=== PATIENT | male | born 1980 | race Two or more races ===

== ENCOUNTER → 2016-11-01 | Emergency (ER) | payer OTHER ==
[~2016-11-01] MED LIST: DICYCLOMINE HCL 10 MG CAPSULE ONE; DICYCLOMINE HCL 10 MG CAPSULE PO ONE; LIDOCAINE VISCOUS 2% ORAL/TOP 20 ML UNIT-DOSE CUP MM ONE; MAG HYDROX/AL HYDROX/SIMETH 30 ML UNIT-DOSE CUP ONE; MAG HYDROX/AL HYDROX/SIMETH 30 ML UNIT-DOSE CUP PO ONE
[2016-11-01 05:27] VITALS: BMI 40.6
--- NOTE | 2016-11-01 05:36 | PDOC ---
History of Present Illness - General History Source: Patient Exam Limitations: No Limitations - History of Present Illness Initial Comments: 11/01/16 05:36 The patient is a 36 year old male with no significant past medical history who presents to the ED with chest pain prior to arrival. Patient reports he developed non-radiating left-sided chest pain prior to arrival. He describes his pain as a burning sensation. He denies diaphoresis, lightheadedness, SOB, shoulder pain, arm pain, jaw pain, nausea, or vomiting. The patient denies fever, chills, cough, abdominal pain, and diarrhea. Allergies: NKDA Social History: Marijuana, cocaine, and etoh use Past Surgical History: None reported PCP: None reported <Emily Tapia - Last Filed: 11/01/16 05:36> <Enmanuel Joyce - Last Filed: 11/01/16 22:20> - General Chief Complaint: Chest Pain Stated Complaint: CHEST DISCOMFORT Past History <Emily Tapia - Last Filed: 11/01/16 05:36> - Past Medical History Anemia: No Asthma: No Cancer: No Cardiac Disorders: No CVA: No COPD: No CHF: No Dementia: No Diabetes: No GI Disorders: Yes (acid reflux) Disorders: No HTN: Yes (BORDERLINE) Hypercholesterolemia: Yes (BORDERLINE) Kidney Stones: No Liver Disease: No Suicide Attempt (Hx): No Seizures: No Thyroid Disease: No - Surgical History Abdominal Surgery: No Appendectomy: No Cardiac Surgery: No Cholecystectomy: No Lung Surgery: No Neurologic Surgery: No Orthopedic Surgery: No - Reproductive History Testicular Surgery: No - Immunization History Immunization Up to Date: No - Psycho/Social/Smoking Cessation Hx Anxiety: No Suicidal Ideation: No Smoking History: Current every day smoker Have you smoked in the past 12 months: Yes Number of Cigarettes Smoked Daily: 10 Information on smoking cessation initiated: Yes 'Breaking Loose' booklet given: 08/21/15 Hx Alcohol Use: Yes Drug/Substance Use Hx: Yes Substance Use Type: Alcohol, Cocaine, Marijuana Hx Substance Use Treatment: No <Enmanuel Joyce - Last Filed: 11/01/16 22:20> - Past Medical History Allergies/Adverse Reactions: Allergies Allergy/AdvReac Type Severity Reaction Status Date / Time No Known Allergies Allergy Verified 11/01/16 05:21 Home Medications: Ambulatory Orders NK [No Known Home Medication] 08/21/15 Review of Systems - Review of Systems Able to Perform ROS?: Yes Comments:: 11/01/16 05:36 CONSTITUTIONAL: Absent: fever, no chills, no fatigue EYES: Absent: visual changes ENT: Absent: ear pain, no sore throat CARDIOVASCULAR: +chest pain Absent: no palpitations RESPIRATORY: Absent: cough, no SOB GI: Absent: abdominal pain, no nausea, no vomiting, no constipation, no diarrhea GENITOURINARY: Absent: dysuria, no frequency, no hematuria MUSKULOSKELETAL: Absent: back pain, no arthralgia, no myalgia SKIN: Absent: rash NEURO: Absent: headache <Emily Tapia - Last Filed: 11/01/16 05:36> *Physical Exam - Vital Signs Last Vital Signs Temp Pulse Resp BP Pulse Ox 97.7 F 98 H 18 143/96 100 11/01/16 05:15 11/01/16 05:15 11/01/16 05:15 11/01/16 05:15 11/01/16 05:15 - Physical Exam Comments: 11/01/16 05:36 GENERAL: Well-appearing, well-nourished. No apparent distress. HEENT: Normocephalic, atraumatic. PERRL, EOM intact. CARDIOVASCULAR: Normal S1, S2. Regular rate and rhythm. PULMONARY: Clear to auscultation bilaterally. ABDOMEN: Soft, non-distended, non-tender. EXTREMITIES: Normal ROM in all four extremities. No gross deformities. SKIN: Warm, dry. No rash NEUROLOGICAL: No focal neurological deficits. <Emily Tapia - Last Filed: 11/01/16 05:36> - Vital Signs Last Vital Signs Temp Pulse Resp BP Pulse Ox 97.7 F 98 H 18 143/96 100 11/01/16 05:15 11/01/16 05:15 11/01/16 05:15 11/01/16 05:15 11/01/16 05:15 <Enmanuel Joyce - Last Filed: 11/01/16 22:20> ED Treatment Course - LABORATORY CBC & Chemistry Diagram: 11/01/16 05:20 11/01/16 05:20 - RADIOLOGY Radiology Studies Ordered: Category Date Time Status CHEST X-RAY PORTABLE* [RAD] Stat Radiology 02/28/17 05:17 Ordered <Enmanuel Joyce - Last Filed: 11/01/16 22:20> *DC/Admit/Observation/Transfer - Attestations Scribe Attestion: 11/01/16 05:36 Documentation prepared by Emily Tapia, acting as medical lab specialist for Enmanuel Joyce MD, <Emily Tapia - Last Filed: 11/01/16 05:36> - Discharge Dispostion Admit: No <Enmanuel Joyce - Last Filed: 11/01/16 22:20> Diagnosis at time of Disposition: Chest pain - Discharge Dispostion Disposition: HOME Condition at time of disposition: Stable - Referrals Referrals: STAFF,NOT ON [Primary Care Provider] - - Patient Instructions Printed Discharge Instructions: DI for Atypical Chest Pain Additional Instructions: You have been worked up for chest pain that is not typical for cardiac origin; however we strongly advise that you refrain from using illegal drugs and substances. Please follow-up with your primary care physician within 3-5 days and return to the emergency department if your symptoms persist, worsen, or new symptoms arise.
[2016-11-01 05:45] LABS: MCH 26.8 pg (25.7-33.7); MCHC 32.6 g/dl (32.0-35.9); MEAN CELL VOLUME 82.1 fl (80-96); MEAN PLT VOLUME 7.9 fl (7.5-11.1); PLATELET COUNT 250 K/MM3 (134-434); WHITE BLOOD COUNT 14.4 K/mm3 (4.0-10.0)
[2016-11-01 06:18] LABS: ALBUMIN 3.7 g/dl (3.4-5.0); ANION GAP 9 (8-16); BILIRUBIN,TOTAL 0.2 mg/dL (0.2-1.0); CO2 28 mmol/L (21-32); CREATININE 1.2 mg/dL (0.7-1.3); GLUCOSE,RANDOM 110 mg/dL (74-106); SGOT/AST 13 U/L (15-37); SGPT/ALT 33 U/L (12-78); TOT PROT 6.9 g/dl (6.4-8.2)
[2016-11-01 06:21] LABS: ALK PHOS 114 U/L (45-117); TROPONIN I < 0.02 ng/ml (0.00-0.05)
[2016-11-01 06:26] LABS: URINE APPEARANCE CLEAR; URINE BILIRUBIN NEGATIVE (NEGATIVE); URINE BLOOD NEGATIVE (NEGATIVE); URINE COLOR LTYELLOW; URINE GLUCOSE (UA) NEGATIVE (NEGATIVE); URINE KETONE NEGATIVE (NEGATIVE); URINE NITRITE NEGATIVE (NEGATIVE); URINE PROTEIN NEGATIVE (NEGATIVE); URINE UROBILINOGEN NEGATIVE E.U./dl (0.2-1.0)
[2016-11-01 06:43] LABS: URINE LEUK ESTERASE TRACE (NEGATIVE)
[2016-11-01 06:46] LABS: URINE MARIJUANA THC POSITIVE ng/ml (CUTOFF=50)
[2016-11-01 06:52] LABS: URINE BACTERIA RARE /hpf (NONE SEEN); URINE HYALINE CAST 1 /lpf; URINE MUCUS RARE; URINE RBC <1 /hpf (0-3); URINE WBC 5 /hpf (3-5)
[2016-11-01 07:12] LABS: PLATELET ESTIMATE ADEQUATE (NORMAL)
[2016-11-01 11:06] VITALS: BP 133/88; PULSE 85; TEMP 97.8
[2016-11-01 12:12] LABS: TROPONIN I < 0.02 ng/ml (0.00-0.05)
--- NOTE | 2016-11-01 12:31 | PDOC ---
*Physical Exam - Vital Signs Last Vital Signs Temp Pulse Resp BP Pulse Ox 97.8 F 85 16 133/88 99 11/01/16 11:05 11/01/16 11:05 11/01/16 11:05 11/01/16 11:05 11/01/16 11:05 ED Treatment Course - LABORATORY CBC & Chemistry Diagram: 11/01/16 05:20 11/01/16 05:20 - ADDITIONAL ORDERS Additional order review: Laboratory Results 11/01/16 11/01/16 11/01/16 11:05 06:00 06:00 Sodium Potassium Chloride Carbon Dioxide Anion Gap BUN Creatinine Creat Clearance w eGFR Random Glucose Calcium Total Bilirubin AST ALT Alkaline Phosphatase Creatine Kinase 159 Creatine Kinase Index CK-MB (CK-2) CK-MB (CK-2) Rel Index Troponin I < 0.02 Total Protein Albumin Urine Color Ltyellow Urine Appearance Clear Urine pH 5.0 Ur Specific Jasper 1.023 Urine Protein Negative Urine Glucose (UA) Negative Urine Ketones Negative Urine Blood Negative Urine Nitrite Negative Urine Bilirubin Negative Urine Urobilinogen Negative Ur Leukocyte Esterase Trace H Urine RBC <1 Urine WBC 5 Ur Epithelial Cells Rare Urine Bacteria Rare Hyaline Casts 1 Urine Mucus Rare Opiates Screen Negative Methadone Screen Negative Barbiturate Screen Negative Phencyclidine Screen Positive Ur Amphetamines Screen Negative MDMA (Ecstasy) Screen Negative Benzodiazepines Screen Negative Cocaine Screen Positive U Marijuana (THC) Screen Positive Alcohol, Quantitative 11/01/16 11/01/16 05:20 05:20 Sodium 143 Potassium 4.0 Chloride 106 Carbon Dioxide 28 Anion Gap 9 BUN 19 H D Creatinine 1.2 Creat Clearance w eGFR > 60 Random Glucose 110 H Calcium 9.0 Total Bilirubin 0.2 D AST 13 L D ALT 33 Alkaline Phosphatase 114 D Creatine Kinase 187 Creatine Kinase Index 0.6 CK-MB (CK-2) 1.169 CK-MB (CK-2) Rel Index Cancelled Troponin I < 0.02 Total Protein 6.9 Albumin 3.7 Urine Color Urine Appearance Urine pH Ur Specific Jasper Urine Protein Urine Glucose (UA) Urine Ketones Urine Blood Urine Nitrite Urine Bilirubin Urine Urobilinogen Ur Leukocyte Esterase Urine RBC Urine WBC Ur Epithelial Cells Urine Bacteria Hyaline Casts Urine Mucus Opiates Screen Methadone Screen Barbiturate Screen Phencyclidine Screen Ur Amphetamines Screen MDMA (Ecstasy) Screen Benzodiazepines Screen Cocaine Screen U Marijuana (THC) Screen Alcohol, Quantitative < 5.0 11/01/16 05:20 RBC 5.36 MCV 82.1 MCHC 32.6 RDW 14.0 MPV 7.9 Neutrophils % 58.0 Lymphocytes % 32.0 Monocytes % 3.0 L Eosinophils % 3.0 - Medications Given in the ED: ED Medications Discontinued Medications Generic Name Dose Route Start Last Admin Trade Name Daryl PRN Reason Stop Dose Admin Al Hydroxide/Mg Hydroxide 30 ml 11/01/16 05:26 11/01/16 06:12 Mylanta Oral Suspension - PO 11/01/16 05:27 30 ml ONCE ONE Administration Dicyclomine HCl 10 mg 11/01/16 05:26 11/01/16 06:12 Bentyl - PO 11/01/16 05:27 10 mg ONCE ONE Administration Lidocaine HCl 10 ml 11/01/16 05:26 11/01/16 06:12 Xylocaine 2% Viscous Oral - MM 11/01/16 05:27 10 ml ONCE ONE Administration Progress Note - Progress Note Progress Note: This patient was endorsed to me at [address] Joyce pending second set of cardiac enzymes and reevaluation. I have reevaluated the patient at this time and the patient is chest pain-free and is feeling improved. His second set of cardiac markers are negative. Will discharge patient home and I have advised him that he said follow-up with his primary care physician within 3-5 days. I have also advised the patient that he should return to the emergency department if his symptoms persist, worsen, or new symptoms arise. *DC/Admit/Observation/Transfer Diagnosis at time of Disposition: Chest pain - Discharge Dispostion Disposition: HOME Condition at time of disposition: Stable Admit: No - Referrals Referrals: STAFF,NOT ON [Primary Care Provider] - - Patient Instructions Printed Discharge Instructions: DI for Atypical Chest Pain Additional Instructions: You have been worked up for chest pain that is not typical for cardiac origin; however we strongly advise that you refrain from using illegal drugs and substances. Please follow-up with your primary care physician within 3-5 days and return to the emergency department if your symptoms persist, worsen, or new symptoms arise. - Post Discharge Activity
--- NOTE | 2016-11-01 12:42 | EKG ---
Test Reason : Blood Pressure : / mmHG Vent. Rate : 098 BPM Atrial Rate : 098 BPM P-R Int : 140 ms QRS Dur : 090 ms QT Int : 328 ms P-R-T Axes : 051 -10 027 degrees QTc Int : 418 ms NORMAL SINUS RHYTHM NORMAL ECG NO PREVIOUS ECGS AVAILABLE Confirmed by BOOKER PAREKH MD ([id number]) on 11/01/2016 12:42:14 PM Referred By: Confirmed By:BOOKER PAREKH MD
== END | disposition home or self-care (01) ==
LOC: JER 04:50
DX: R07.89 Other chest pain (principal); I10 Essential (primary) hypertension; E78.00 Pure hypercholesterolemia, unspecified; K21.9 Gastro-esophageal reflux disease without esophagitis; F17.210 Nicotine dependence, cigarettes, uncomplicated
CPT/HCPCS: 36415; 71020-TC; 80053; 80307; 81003; 81015; 82550; 82553; 84484; 85025; 93005; 93010; 99282-25

== ENCOUNTER 2018-04-23 09:07 | Emergency (ER) | payer OTHER ==
[2018-04-23 09:14] VITALS: BP 129/90; PULSE 100; TEMP 98.3; BMI 40.3
[2018-04-23] MEDS ORDERED: AZITHROMYCIN 1 GM PACKET PO ONE (09:37)
--- NOTE | 2018-04-23 09:40 | PDOC ---
History of Present Illness - General Chief Complaint: Penile Drainage Stated Complaint: EVALUATION Time Seen by Provider: 04/23/18 09:25 History Source: Patient Exam Limitations: No Limitations - History of Present Illness Travel History: No Initial Comments: 04/23/18 09:35 Patient here concerned about STD. States had unprotected sex on Monday and feels some mild burning to his penis since that time. is uncertain as the health status of his female friend. Has never had an STD Quality: reports: mild Abdominal Pain Onset Location: reports: generalized abdomen Pain Radiation: reports: no radiation Activities at Onset: reports: none Past History - Past Medical History Allergies/Adverse Reactions: Allergies Allergy/AdvReac Type Severity Reaction Status Date / Time No Known Allergies Allergy Verified 04/23/18 09:11 Home Medications: Ambulatory Orders NK [No Known Home Medication] 08/21/15 Anemia: No Asthma: No Cancer: No Cardiac Disorders: No CVA: No COPD: No CHF: No DVT: No Dementia: No Diabetes: No GI Disorders: Yes (acid reflux) Disorders: No HTN: Yes (BORDERLINE) Hypercholesterolemia: Yes (BORDERLINE) Kidney Stones: No Liver Disease: No Seizures: No Thyroid Disease: No - Surgical History Abdominal Surgery: No Appendectomy: No Cardiac Surgery: No Cholecystectomy: No Lung Surgery: No Neurologic Surgery: No Orthopedic Surgery: No - Reproductive History Testicular Surgery: No - Immunization History Immunization Up to Date: No - Suicide/Smoking/Psychosocial Hx Smoking History: Current every day smoker Have you smoked in the past 12 months: Yes Number of Cigarettes Smoked Daily: 5 Information on smoking cessation initiated: Yes 'Breaking Loose' booklet given: 04/23/18 Hx Alcohol Use: No Drug/Substance Use Hx: No Substance Use Type: Alcohol, Cocaine, Marijuana Hx Substance Use Treatment: No Abd/GI Specific PMHX - Complaint Specific PMHX Hepatitis: No Pancreatitis: No Review of Systems - Review of Systems Able to Perform ROS?: No Is the patient limited Divehi proficient: No Constitutional: Yes: See HPI. No: Symptoms Reported, Loss of Appetite, Malaise HEENTM: No: Symptoms Reported ABD/GI: No: Symptoms Reported : Yes: Symptoms Reported, See HPI, Burning. No: Dysuria, Discharge All Other Systems: Reviewed and Negative *Physical Exam - Vital Signs Last Vital Signs Temp Pulse Resp BP Pulse Ox 98.3 F 100 H 18 129/90 100 04/23/18 09:11 04/23/18 09:11 04/23/18 09:11 04/23/18 09:11 04/23/18 09:11 - Physical Exam General Appearance: Yes: Nourished, Appropriately Dressed. No: Mild Distress HEENT: positive: MECHELLE, Normal ENT Inspection, TMs Normal, Pharynx Normal Neck: positive: Supple. negative: Tender, Lymphadenopathy (R), Lymphadenopathy (L) Male Genitalia: positive: normal genitalia. 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 Patient understands results will return in 3-5 days for treatment for gonorrhea and chlamydia has been completed. HIV testing negative *DC/Admit/Observation/Transfer Diagnosis at time of Disposition: Exposure to STD - Discharge Dispostion Disposition: HOME Condition at time of disposition: Stable Decision to Admit order: No - Referrals Referrals: Cash Smith [Primary Care Provider] - - Patient Instructions Printed Discharge Instructions: Facts About Sexually Transmitted Infections Additional Instructions: You been treated today with azithromycin 1 g by mouth for treatment of presumed chlamydia You have been treated with Rocephin 250 mg injection for treatment of presumned gonorrhea The syphilis test, gonorrhea and chlamydia testing will not be completed for the next few days. Your HIV testing was negative today You may call [phone] and leave message for return phone call with lab results. Be sure to be clear with your name, birthdate, and phone number Always use condoms with the partners Followup with PMD in one week for reevaluation and retesting. - Post Discharge Activity Forms/Work/School Notes: Back to Work
[2018-04-23 09:54] LABS: URINE APPEARANCE CLEAR; URINE BILIRUBIN NEGATIVE (<2.0 mg/dL); URINE COLOR YELLOW; URINE GLUCOSE (UA) NEGATIVE (NEGATIVE); URINE KETONE TRACE (NEGATIVE); URINE LEUK ESTERASE NEGATIVE (NEGATIVE); URINE NITRITE NEGATIVE (NEGATIVE); URINE PROTEIN NEGATIVE (NEGATIVE)
[2018-04-23] MEDS ORDERED: AZITHROMYCIN 250 MG TABLET ONE (09:55)
== END 2018-04-23 11:39 | disposition home or self-care (01) ==
LOC: JERFT 09:07
DX: Z20.2 Contact with and (suspected) exposure to infections with a predominantly sexual mode of transmission (principal)
CPT/HCPCS: 36415; 81003; 86593; 87389; 87491; 87591; 96372; 99281-25

== ENCOUNTER 2019-07-11 08:33 | Emergency (ER) | payer SELFPAY ==
[2019-07-11 08:38] VITALS: BP 167/90; PULSE 98; TEMP 98.6; BMI 37.6
[2019-07-11] MEDS ORDERED: AZITHROMYCIN 500 MG TABLET PO ONE (09:47)
--- NOTE | 2019-07-11 09:52 | PDOC ---
History of Present Illness - General Chief Complaint: HIV Testing Stated Complaint: DIZZNESS Time Seen by Provider: 07/11/19 08:49 - History of Present Illness Initial Comments: 07/11/19 09:48 CHIEF COMPLAINT: std testing HISTORY OF PRESENT ILLNESS: 39 yo M presents to [facility] for [facility]D [facility]. Patient reports that he was in [place] with his ex this weekend and "had a little too much fun" and was involved with an additional sexual partner. He states he wants to get checked for STDs although "it's not that big of a deal, we have a kid together and I know her friend that we were with too, I just want to make sure I'm ok." Patient denies any symptoms including urinary discomfort or penile discharge. No recent travel or sick contacts. PAST MEDICAL HISTORY: Denies past medical history FAMILY HISTORY: Denies SOCIAL HISTORY: Denies tobacco, alcohol, illicit drug use. SURGICAL HISTORY: Denies ALLERGIES: No known drug allergies REVIEW OF SYSTEMS General/Constitutional: Denies fever or chills. Denies weakness, weight change. HEENT: Denies change in vision. Denies ear pain or discharge. Denies sore throat. Cardiovascular: Denies chest pain or shortness of breath. Respiratory: Denies cough, wheezing, or hemoptysis. Gastrointestinal: Denies nausea, vomiting, diarrhea or constipation. Denies rectal bleeding. Genitourinary: Denies dysuria, frequency, or change in urination. Musculoskeletal: Denies joint or muscle swelling or pain. Denies neck or back pain. Skin and breasts: Denies rash or easy bruising. Neurologic: Denies headache, vertigo, loss of consciousness, or loss of sensation. Psychiatric: Denies depression or anxiety. PHYSICAL EXAM General Appearance: Well-appearing, appropriately dressed. No apparent distress , no intoxication. HEENT: EOMI, PERRLA, normal ENT inspection, normal voice, TMs normal, pharynx normal. No conjunctival pallor. No photophobia, scleral icterus. Neck: Supple. Trachea midline. No tenderness, rigidity, carotid bruit, stridor , lymphadenopathy, or thyromegaly. Respiratory/Chest: Lungs CTAB. No shortness of breath, chest tenderness, respiratory distress, accessory muscle use. No crackles, rales, rhonchi, stridor , wheezing, dullness Cardiovascular: RRR. S1, S2. No JVD, murmur, bradycardia, tachycardia. Vascular Pulses: Dorsalis-Pedis (R): 2+, Dorsalis-Pedis (L): 2+ Gastrointestinal/Abdominal: Normal bowel sounds. Abdomen soft, non-distended. No tenderness or rebound tenderness. No organomegaly, pulsatile mass, guarding , hernia, hepatomegaly, splenomegaly. Lymphatic: No adenopathy, tenderness. Musculoskeletal/Extremities: Normal inspection. FROM of all extremities, normal capillary refill. Pelvis Stable. No CVA tenderness. No tenderness to extremities, pedal edema, swelling, erythema or deformity. Integumentary: Appropriate color, dry, warm. 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 Fully oriented, alert. Appropriate mood/affect. Motor strength 5/5. No appreciable EOM palsy, facial droop or sensory deficit. Past History - Past Medical History Allergies/Adverse Reactions: Allergies Allergy/AdvReac Type Severity Reaction Status Date / Time No Known Allergies Allergy Verified 07/11/19 08:39 Home Medications: Ambulatory Orders NK [No Known Home Medication] 08/21/15 Anemia: No Asthma: No Cancer: No Cardiac Disorders: No CVA: No COPD: No CHF: No DVT: No Dementia: No Diabetes: No GI Disorders: Yes (acid reflux) Disorders: No HTN: Yes (BORDERLINE) Hypercholesterolemia: Yes (BORDERLINE) Kidney Stones: No Liver Disease: No Seizures: No Thyroid Disease: No - Surgical History Abdominal Surgery: No Appendectomy: No Cardiac Surgery: No Cholecystectomy: No Lung Surgery: No Neurologic Surgery: No Orthopedic Surgery: No - Reproductive History Testicular Surgery: No - Immunization History Immunization Up to Date: No - Psycho Social/Smoking Cessation Hx Smoking History: Current every day smoker Have you smoked in the past 12 months: Yes Number of Cigarettes Smoked Daily: 5 Information on smoking cessation initiated: No 'Breaking Loose' booklet given: 04/23/18 Hx Alcohol Use: No Drug/Substance Use Hx: No Substance Use Type: Alcohol, Cocaine, Marijuana Hx Substance Use Treatment: No *Physical Exam - Vital Signs Last Vital Signs Temp Pulse Resp BP Pulse Ox 98.6 F 98 H 14 167/90 98 07/11/19 08:36 07/11/19 08:36 07/11/19 08:36 07/11/19 08:36 07/11/19 08:36 Medical Decision Making - Medical Decision Making 07/11/19 09:52 39 yo M presents to fast track for STD testing. Patient states he does not want to wait for HIV testing and will do that with PCP's office. He does request other testing and treatment for chlamydia/ gonorrhea. -RPR, hep C -chlamydia, gonorrhea, trich -azithromycin, ceftriaxone Discharge - Discharge Information Problems reviewed: Yes Clinical Impression/Diagnosis: Concern about STD in male without diagnosis Condition: Stable Disposition: HOME - Admission No - Follow up/Referral Referrals: Cash Smith [Primary Care Provider] - Griffin Collins MD [Staff Physician] - - Patient Discharge Instructions Patient Printed Discharge Instructions: Facts About Sexually Transmitted Infections - Post Discharge Activity
[2019-07-11] MEDS ORDERED: AZITHROMYCIN 250 MG TABLET ONE (10:12)
== END 2019-07-11 10:30 | disposition home or self-care (01) ==
LOC: JERFT 08:33
DX: Z71.1 Person with feared health complaint in whom no diagnosis is made (principal)
CPT/HCPCS: 36415; 86593; 87491; 87522; 87591; 87661; 99281-25

== ENCOUNTER 2020-11-30 15:39 | Emergency (ER) | payer OTHER ==
[2020-11-30 15:55] VITALS: TEMP 97.7; BMI 36.9
[2020-11-30 16:47] VITALS: BP 170/100; PULSE 96
[2020-11-30 16:55] LABS: URINE APPEARANCE CLEAR; URINE BILIRUBIN NEGATIVE (NEGATIVE); URINE COLOR YELLOW; URINE GLUCOSE (UA) TRACE (NEGATIVE); URINE KETONE NEGATIVE (NEGATIVE); URINE LEUK ESTERASE NEGATIVE (NEGATIVE); URINE NITRITE NEGATIVE (NEGATIVE); URINE PROTEIN NEGATIVE (NEGATIVE); URINE UROBILINOGEN 0.2 mg/dL (0.2-1.0)
== END 2020-11-30 16:59 | disposition home or self-care (01) ==
LOC: JERFT 15:39
DX: R03.0 Elevated blood-pressure reading, without diagnosis of hypertension (principal); Z11.3 Encounter for screening for infections with a predominantly sexual mode of transmission
CPT/HCPCS: 36415; 81003; 87086; 87491; 87591; 99283-25

== ENCOUNTER 2021-01-02 17:18 | Emergency (ER) | payer OTHER ==
[2021-01-02 17:32] VITALS: BP 143/86; PULSE 111; TEMP 97.7; BMI 40.6
== END 2021-01-02 18:03 | disposition left against medical advice (07) ==
LOC: JER 17:18
DX: R42 Dizziness and giddiness (principal)
CPT/HCPCS: 99281-25

== ENCOUNTER 2023-03-19 19:54 | Emergency (ER) | payer OTHER ==
[2023-03-19 20:15] VITALS: BP 148/91; PULSE 111; RESP 20; TEMP 99; BMI 39.5
== END 2023-03-19 21:42 | disposition home or self-care (01) ==
LOC: FER 19:54
DX: Z20.2 Contact with and (suspected) exposure to infections with a predominantly sexual mode of transmission (principal)
CPT/HCPCS: 36415; 81003; 86780; 87491; 87591; 99283-25

== ENCOUNTER 2023-05-18 23:08 | Emergency (ER) | payer OTHER ==
[2023-05-18 23:12] VITALS: BMI 38.7
[2023-05-19 00:36] LABS: BASO % 0.8 % (0-2.0); HEMATOCRIT 47.3 % (35.4-49); HEMOGLOBIN 15.5 GM/dL (11.7-16.9); LYMPH % 20.2 % (8-40); MCH 26.6 pg (25.7-33.7); MCHC 32.8 g/dl (32.0-35.9); MEAN CELL VOLUME 81.1 fl (80-96); MEAN PLT VOLUME 7.7 fl (7.5-11.1); MONO % 7.8 % (3.8-10.2); NEUT % 70.2 % (42.8-82.8); PLATELET COUNT 267 10^3/uL (134-434); RBC 5.83 M/mm3 (4.00-5.60); RDW 13.9 % (11.9-15.9); WHITE BLOOD COUNT 10.6 K/mm3 (4.0-10.0)
[2023-05-19 00:51] LABS: URINE APPEARANCE CLEAR; URINE BILIRUBIN NEGATIVE (NEGATIVE); URINE COLOR YELLOW; URINE GLUCOSE (UA) 3+ (NEGATIVE); URINE KETONE 1+ (NEGATIVE); URINE LEUK ESTERASE NEGATIVE (NEGATIVE); URINE NITRITE NEGATIVE (NEGATIVE); URINE PROTEIN NEGATIVE (NEGATIVE); URINE UROBILINOGEN 0.2 mg/dL (0.2-1.0)
[2023-05-19 00:57] LABS: POTASSIUM 4.2 mmol/L (3.5-5.1)
[2023-05-19 01:00] LABS: ALBUMIN 3.9 g/dl (3.4-5.0); BLOOD UREA NITROGEN 13.1 mg/dL (7-18)
[2023-05-19 01:03] LABS: CREATININE 1.1 mg/dL (0.55-1.3)
[2023-05-19 01:05] LABS: BILIRUBIN,TOTAL 0.4 mg/dL (0.2-1); TOT PROT 7.2 g/dl (6.4-8.2)
[2023-05-19] MEDS ORDERED: LACTATED RINGERS SOLUTION 1000 ML INFUS.BAG IV ONE (01:36)
[2023-05-19] MEDS ORDERED: ACETAMINOPHEN 1000 MG/100 ML BAG IVPB ONE (01:36)
[2023-05-19] MEDS ORDERED: ACETAMINOPHEN INJECTION 100 ML IVPB ONE (01:41)
[2023-05-19 01:55] LABS: HIV INTERPRETATION NEGATIVE (NEGATIVE)
[2023-05-19] MEDS ORDERED: CLINDAMYCIN HCL 150 MG CAPSULE (FP) PO ONE (02:02)
[2023-05-19] MEDS ORDERED: CLINDAMYCIN HCL 150 MG CAPSULE (FP) ONE (03:05)
[2023-05-19 03:16] VITALS: BP 126/74; PULSE 91; RESP 16; TEMP 98.5
== END 2023-05-19 03:17 | disposition home or self-care (01) ==
LOC: JER 23:08
PROC: 3E033NZ Introduction of Analgesics, Hypnotics, Sedatives into Peripheral Vein, Percutaneous Approach (ICD-10-PCS; principal; 2023-05-19)
DX: N49.2 Inflammatory disorders of scrotum (principal)
CPT/HCPCS: 36415; 76870-TC; 80053; 81003; 85025; 86780; 87077; 87086; 87389; 99284-25

== ENCOUNTER 2023-07-21 09:22 | Emergency (ER) | payer OTHER ==
[2023-07-21 09:32] VITALS: RESP 18; TEMP 98; BMI 40.3
[2023-07-21] MEDS ORDERED: KETOROLAC TROMETHAMINE 30 MG/1 ML VIAL IVPUSH ONE (10:33)
[2023-07-21] MEDS ORDERED: KETOROLAC TROMETHAMINE 30 MG/1 ML VIAL ONE (10:40)
[2023-07-21 11:00] LABS: BASO % 0.9 % (0-2.0); EOS % 1.1 % (0-4.5); HEMATOCRIT 42.8 % (35.4-49); HEMOGLOBIN 14.2 GM/dL (11.7-16.9); LYMPH % 21.5 % (8-40); MCH 26.6 pg (25.7-33.7); MCHC 33.2 g/dl (32.0-35.9); MEAN CELL VOLUME 80.4 fl (80-96); MEAN PLT VOLUME 7.5 fl (7.5-11.1); MONO % 6.6 % (3.8-10.2); NEUT % 69.9 % (42.8-82.8); PLATELET COUNT 293 10^3/uL (134-434); RBC 5.32 M/mm3 (4.00-5.60); RDW 14.6 % (11.9-15.9); WHITE BLOOD COUNT 12.1 K/mm3 (4.0-10.0)
[2023-07-21 11:16] LABS: POTASSIUM 3.7 mmol/L (3.5-5.1)
[2023-07-21 11:18] LABS: CALCIUM 9.3 mg/dL (8.5-10.1)
[2023-07-21 11:19] LABS: ALBUMIN 3.5 g/dl (3.4-5.0); BLOOD UREA NITROGEN 13.8 mg/dL (7-18)
[2023-07-21 11:22] LABS: CREATININE 1.3 mg/dL (0.55-1.3)
[2023-07-21 11:23] LABS: TOT PROT 6.6 g/dl (6.4-8.2)
[2023-07-21 11:24] LABS: BILIRUBIN,TOTAL 0.4 mg/dL (0.2-1)
[2023-07-21] MEDS: SODIUM CHLORIDE 0.9% 500 ML INFUS.BAG IV SCH ×2 (12:23→14:15)
[2023-07-21 14:49] LABS: PH,URINE 5.5 (5.0-8.0); URINE APPEARANCE CLEAR; URINE BILIRUBIN NEGATIVE (NEGATIVE); URINE COLOR YELLOW; URINE GLUCOSE (UA) 3+ (NEGATIVE); URINE KETONE TRACE (NEGATIVE); URINE LEUK ESTERASE NEGATIVE (NEGATIVE); URINE NITRITE NEGATIVE (NEGATIVE); URINE PROTEIN NEGATIVE (NEGATIVE); URINE UROBILINOGEN 0.2 mg/dL (0.2-1.0)
[2023-07-21 15:06] VITALS: BP 132/82; PULSE 79
[2023-07-21] MEDS ORDERED: METHOCARBAMOL 500 MG TABLET PO ONE (15:16)
[2023-07-21] MEDS ORDERED: ACETAMINOPHEN 500 MG TABLET (FP) PO ONE (15:16)
[2023-07-21] MEDS ORDERED: METHOCARBAMOL 500 MG TABLET ONE (15:19)
== END 2023-07-21 15:48 | disposition home or self-care (01) ==
LOC: JERFT 09:22
PROC: 3E0333Z Introduction of Anti-inflammatory into Peripheral Vein, Percutaneous Approach (ICD-10-PCS; principal; 2023-07-21)
PROC: 3E0337Z Introduction of Electrolytic and Water Balance Substance into Peripheral Vein, Percutaneous Approach (ICD-10-PCS; 2023-07-21)
DX: R10.9 Unspecified abdominal pain (principal); M54.9 Dorsalgia, unspecified
CPT/HCPCS: 36415; 74176-TC; 80053; 81003; 82962; 85025; 87077; 87086; 87186; 99284-25

== ENCOUNTER 2023-08-20 05:35 | Emergency (ER) | payer OTHER ==
[2023-08-20 05:56] VITALS: BP 121/80; PULSE 110; RESP 18; TEMP 98.5; BMI 38.0
[2023-08-20] MEDS ORDERED: DIPHTH,PERTUSS(ACELL),TET 0.5 ML DISP.SYRIN IM ONE ×2 (08:50→08:55)
== END 2023-08-20 12:14 | disposition home or self-care (01) ==
LOC: JER 05:35
PROC: 3E0234Z Introduction of Serum, Toxoid and Vaccine into Muscle, Percutaneous Approach (ICD-10-PCS; principal; 2023-08-20)
DX: S01.511A Laceration without foreign body of lip, initial encounter (principal); S01.21XA Laceration without foreign body of nose, initial encounter; K03.81 Cracked tooth; Y04.0XXA Assault by unarmed brawl or fight, initial encounter; Y92.522 Railway station as the place of occurrence of the external cause
CPT/HCPCS: 70450-TC; 70486-TC; 72125-TC; 90471; 90715; 99284-25

== ENCOUNTER 2024-03-10 23:32 | Emergency (ER) | payer OTHER ==
[2024-03-10 23:43] VITALS: BP 157/91; PULSE 113; RESP 18; TEMP 98.2; BMI 37.2
[2024-03-11] MEDS ORDERED: ACETAMINOPHEN 500 MG TABLET (FP) ONE (00:47)
[2024-03-11] MEDS ORDERED: IBUPROFEN 400 MG TABLET (FP) PO ONE (00:47)
[2024-03-11] MEDS: IBUPROFEN 400 MG TABLET (FP) PO ONE (00:58)
[2024-03-11] MEDS: ACETAMINOPHEN 500 MG TABLET (FP) PO ONE (00:59)
== END 2024-03-11 02:00 | disposition home or self-care (01) ==
LOC: JER 23:32
DX: S89.92XA Unspecified injury of left lower leg, initial encounter (principal); W19.XXXA Unspecified fall, initial encounter
CPT/HCPCS: 73562-TC-LT-FY; 99283-25